=== PATIENT | male | born 1970 | race Caucasian/White ===

== ENCOUNTER → 2021-02-26 | Outpatient (REF) | payer OTHER | LOC: M LAB REF 16:46 | PROVIDERS: ATTEND Internal Medicine | DX: L81.8 Other specified disorders of pigmentation (principal) ==

== ENCOUNTER 2023-06-19 12:20 | Day surgery (SDC) | payer OTHER ==
[~2023-06-19] VITALS: Ht 165.1 cm; Wt 83.0 kg
[2023-06-19] MEDS ORDERED: propofoL 200 MG/20 ML VIAL As Ordered ONE (14:37)
[2023-06-19 14:51] VITALS: TEMP 97.1
[2023-06-19 15:02] VITALS: BP 161/88; O2SAT 100
== END 2023-06-19 15:09 | disposition home or self-care (01) ==
LOC: M OPP 12:20
PROVIDERS: ATTEND Internal Medicine Gastroenterology
DX: Z12.11 Encounter for screening for malignant neoplasm of colon (principal); K64.0 First degree hemorrhoids; K57.30 Diverticulosis of large intestine without perforation or abscess without bleeding; Z86.010 Personal history of colon polyps; E66.9 Obesity, unspecified

== ENCOUNTER → 2023-06-23 | Outpatient (CLI) | payer OTHER | LOC: M WUC 11:04 | PROVIDERS: ATTEND Internal Medicine | DX: M25.561 Pain in right knee (principal); M25.562 Pain in left knee; M25.551 Pain in right hip; M25.552 Pain in left hip; M54.50 Low back pain, unspecified; M16.0 Bilateral primary osteoarthritis of hip; M51.36 Other intervertebral disc degeneration, lumbar region ==